=== PATIENT | female | born 1990 | race Caucasian/White ===

== ENCOUNTER 2023-03-05 14:44 | Emergency (ER) | payer MEDICAID ==
[~2023-03-05] VITALS: Ht 167.6 cm; Wt 119.8 kg
[2023-03-05] MEDS ORDERED: amoxicillin 250mg capsule PO ONE (17:10)
[2023-03-05] MEDS ORDERED: ALBU8HFA PO (17:13)
[2023-03-05] MEDS ORDERED: AMOX500C2 PO (17:13)
[2023-03-05 17:41] VITALS: BP 138/80; PULSE 82; TEMP 97.9; O2SAT 99
[2023-03-05 17:45] VITALS: RESP 18
== END 2023-03-05 17:47 | disposition home or self-care (01) ==
LOC: ER 14:45
DX: O99.513 Diseases of the respiratory system complicating pregnancy, third trimester (principal); Z20.822 Contact with and (suspected) exposure to COVID-19; J45.909 Unspecified asthma, uncomplicated; Z3A.35 35 weeks gestation of pregnancy; Z79.899 Other long term (current) drug therapy; Z79.2 Long term (current) use of antibiotics
CPT/HCPCS: 36415; 76805; 87502; 87503; 87811; 99284

== ENCOUNTER 2023-11-06 14:08 | Emergency (ER) | payer MEDICAID ==
[~2023-11-06] VITALS: Ht 167.6 cm; Wt 111.5 kg
[2023-11-06 14:26] VITALS: TEMP 98.2
[2023-11-06 14:59] LABS: BASOPHILS % (AUTO) 0.6 % (0-1); EOSINOPHILS % (AUTO) 0.6 % (0-6); HEMATOCRIT 40.2 % (35.0-45.0); HEMOGLOBIN 13.3 g/dl (12.0-16.0); LYMPHOCYTES # (AUTO) 1.6 X10'3 (1.1-4.8); LYMPHOCYTES % (AUTO) 21.1 % (21-51); MEAN CORPUSCULAR HEMOGLOBIN 29.4 PG (27.0-31.0); MEAN CORPUSCULAR HGB CONC 33.1 g/dL (33.0-36.5); MEAN CORPUSCULAR VOLUME 88.9 FL (78-98); MEAN PLATELET VOLUME 7.3 FL (7.4-10.4); MONOCYTES # (AUTO) 0.3 X10'3 (0-0.9); NEUTROPHILS # (AUTO) 5.5 X10'3 (1.8-7.7); NEUTROPHILS % (AUTO) 73.7 % (42-75); PLATELET COUNT 317 X10'3 (140-440); RED BLOOD COUNT 4.53 X10'6 (4.20-5.60); RED CELL DISTRIBUTION WIDTH 13.8 % (11.5-14.5); WHITE BLOOD COUNT 7.4 X10'3 (4.5-11.0)
[2023-11-06 15:08] LABS: ANION GAP 11 (8-16); BLOOD UREA NITROGEN 17 MG/DL (7-18); BUN/CREATININE RATIO 21.3 (10.0-20.0); CALCIUM 9.5 MG/DL (8.5-10.1); CHLORIDE 104 MMOL/L (99-107); GLUCOSE 118 MG/DL (70-104); POTASSIUM 4.4 MMOL/L (3.5-5.1); SODIUM 142 MMOL/L (135-145); TOTAL CARBON DIOXIDE 26.9 MMOL/L (24-32); eCRCL 95 ML/MIN; eGFR 83 ML/MIN
[2023-11-06] MEDS: metoclopramide 5 mg/ml inj IV ONE (16:42)
[2023-11-06] MEDS: diphenhydrAMINE 50 mg/ml inj IV ONE (16:42)
[2023-11-06 17:27] LABS: HCG SERUM QL NEGATIVE
[2023-11-06] MEDS ORDERED: SCOP1PAT11 TOP (18:31)
[2023-11-06 18:39] VITALS: BP 118/74; PULSE 82; RESP 17; O2SAT 99
== END 2023-11-06 18:40 | disposition home or self-care (01) ==
LOC: ER 14:09
DX: R42 Dizziness and giddiness (principal); H57.12 Ocular pain, left eye
CPT/HCPCS: 36415; 70450; 80048; 84703; 85025; 93005; 96374; 96375; 99285; J1200; J2765

== ENCOUNTER 2024-08-05 14:00 | Emergency (ER) | payer MEDICAID ==
[~2024-08-05] VITALS: Ht 167.6 cm; Wt 114.2 kg
[~2024-08-05 14:00] MED LIST: SCOP1PAT11 TOP
--- NOTE | 2024-08-05 16:31 | Physician Documentation ---
History of Present Illness General Chief Complaint: Headache Stated Complaint: HEAD PAIN Time Seen by MD: 16:14 Primary Medical Doctor: NONE History of Present Illness Initial Comments 34-year-old female presents to the emergency department with complaint of vertigo and headache. She is quite frustrated because she feels that no one has been listening to her complaints pathology for the last six months. Seen once in the emergency department here beginning of the year then again and again at [facility] couple of weeks ago. Has had no formal advanced imaging of the brain. 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 Feels pressure pain to her head that is pulsating throughout the day. Presents quite anxious and upset. Medication Reconciliation Allergies: Coded Allergies: No Known Allergies (Unverified , 03/05/23) Scheduled Scopolamine Hydrobromide (Transderm-Scop), 1 PATCH TOP Q72H Past Medical History Past Medical History: No Pertinent History Past Surgical History: noncontributory Lives with: Family Lives In: Home Physical Exam Physical Exam Vital Signs: Temperature: 97.7, Source: Temporal, Heart Rate: 97, Respiratory Rate: 18, BP: 154/92, Pulse Oximetry: 98, Weight: 114.200 Oxygen Flow Rate: 0 Progress Results/Orders Results/Orders Orders - ALEJANDRA ATWOOD PAC Ct Head (08/05/24 16:45) Completed Orders - ALEJANDRA ATWOOD PAC Cbc/Diff (08/05/24 16:14) CMP (08/05/24 16:14) Ct Head (08/05/24 16:45) Normal Saline 1000ml (Sodium Chloride 10 (08/05/24 16:15) Metoclopramide Inj (Reglan Inj) (08/05/24 16:15) Diphenhydramine Inj (Benadryl Inj.) (08/05/24 16:15) Methylprednisolone Sod Succ (Solumedrol (08/05/24 16:15) Medications Received in ER Medications (Trade) Dose Ordered Sig/Zach Route PRN Reason Start Time Stop Time Status Last Admin Dose Admin Sodium Chloride 1,000 ml @ 1,000 mls/hr ONCE ONCE IV 08/05/24 16:15 08/05/24 17:14 DC 08/05/24 17:12 1,000 MLS/HR (Reglan inj) 10 mg ONCE ONCE IV 08/05/24 16:15 08/05/24 16:17 DC 08/05/24 17:12 10 MG (Benadryl inj.) 50 mg ONCE ONCE IV 08/05/24 16:15 08/05/24 16:17 DC 08/05/24 17:11 50 MG (SoluMEDROL 125mg inj) 125 mg ONCE ONCE IV 08/05/24 16:15 08/05/24 16:17 DC 08/05/24 17:11 125 MG Vital Signs 08/05/24 08/05/24 14:04 17:21 Temp 97.7 97.7 Pulse 97 87 Resp 18 15 B/P (MAP) 154/92 1/ Pulse Ox 98 100 O2 Flow Rate 0 0 Laboratory Tests Test 08/05/24 16:31 White Blood Count 7.5 Red Blood Count 4.43 Hemoglobin 12.8 Hematocrit 38.1 Mean Corpuscular Volume 85.9 Mean Corpuscular Hemoglobin 28.9 Mean Corpuscular Hemoglobin Concent 33.7 Red Cell Distribution Width 14.2 Platelet Count 345 Mean Platelet Volume 7.1 L Neutrophils (%) (Auto) 63.1 Lymphocytes (%) (Auto) 29.4 Monocytes (%) (Auto) 5.5 Eosinophils (%) (Auto) 1.3 Basophils (%) (Auto) 0.7 Neutrophils # (Auto) 4.7 Lymphocytes # (Auto) 2.2 Monocytes # (Auto) 0.4 Eosinophils # (Auto) 0.1 Basophils # (Auto) 0.1 CBC Comment Sodium Level 139 Potassium Level 4.7 Chloride Level 102 Carbon Dioxide Level 28.9 Anion Gap 8 Blood Urea Nitrogen 10 Creatinine 0.82 Estimated GFR/1.73 m2 80 BUN/Creatinine Ratio 12.2 Glucose Level 98 Calcium Level 8.8 Total Bilirubin 0.3 Aspartate Amino Transf (AST/SGOT) 18 Alanine Aminotransferase (ALT/SGPT) 41 Alkaline Phosphatase 86 Total Protein 7.4 Albumin 3.8 Globulin 3.6 Albumin/Globulin Ratio 1.1 Chemistry Comments Medical Decision Making Differential Diagnosis 34-year-old female with a diagnosis of vertigo continues to have breakthrough headaches despite occasional episodes maneuver. We will go ahead and obtain CT imaging to evaluate for sensorial vertigo. Patient to receive screening labs, IV hydration reassessment. Departure Disposition: HOME / SELF CARE / HOMELESS Impression: Primary Impression: Vertigo Additional Impression: Headache Qualified Codes: R51.9 - Headache, unspecified; G89.29 - Other chronic pain Condition: Improved Discharge Instructions: Vertigo Additional Instructions: Today in the emergency department you had labs obtain a CT imaging. You received medication for headache mitigation and Solu-Medrol for vertigo. Your labs are reassuring your CT imaging is reassuring. Make a follow up appointment with the primary care physician for additional workup as needed. Thank you for visiting the emergency department [facility]. Referrals: NO PRIMARY CARE PROVIDER (PCP) Prescriptions Meclizine Hcl (MECLIZINE HCL) 12.5 Mg Tablet 1 TAB PO Q8H for dizziness for 10 Days, #30 TAB 0 Refills Prov: AELJANDRA ATWOOD PAC 08/05/24 Education Educated: Patient Educated regarding: diagnosis, treatment Signature Scribe Signature: . Attestation: . LAEJANDRA ATWOOD PAC Aug 05, 2024 16:31
[2024-08-05 16:49] LABS: BASOPHILS # (AUTO) 0.1 X10'3 (0-0.2); EOSINOPHILS # (AUTO) 0.1 X10'3 (0-0.9); LYMPHOCYTES # (AUTO) 2.2 X10'3 (1.1-4.8); MEAN CORPUSCULAR VOLUME 85.9 FL (78-98); MONOCYTES # (AUTO) 0.4 X10'3 (0-0.9); RED CELL DISTRIBUTION WIDTH 14.2 % (11.5-14.5); WHITE BLOOD COUNT 7.5 X10'3 (4.5-11.0)
[2024-08-05 16:51] LABS: BASOPHILS % (AUTO) 0.7 % (0-1); EOSINOPHILS % (AUTO) 1.3 % (0-6); HEMATOCRIT 38.1 % (35.0-45.0); HEMOGLOBIN 12.8 g/dl (12.0-16.0); LYMPHOCYTES % (AUTO) 29.4 % (21-51); MEAN CORPUSCULAR HEMOGLOBIN 28.9 PG (27.0-31.0); MEAN CORPUSCULAR HGB CONC 33.7 g/dL (33.0-36.5); MEAN PLATELET VOLUME 7.1 FL (7.4-10.4); MONOCYTES % (AUTO) 5.5 % (2-12); NEUTROPHILS # (AUTO) 4.7 X10'3 (1.8-7.7); NEUTROPHILS % (AUTO) 63.1 % (42-75); PLATELET COUNT 345 X10'3 (140-440); RED BLOOD COUNT 4.43 X10'6 (4.20-5.60)
--- NOTE | 2024-08-05 17:10 | RADIOLOGY REPORT ---
CLINICAL HISTORY: Vertigo TECHNIQUE: Helical imaging carried out from skull base to vertex without intravenous contrast. This e xam was performed according to our departmental dose optimization program. Up-to-date CT equipment an d radiation dose reduction techniques are utilized as appropriate. CTDIVol: 0.14+ 64.63 mGy DLP: 1186.59 mGy-cm WID: COMPARISON: CT CT HEAD on DOS: 11/06/23 FINDINGS: The ventricles and subarachnoid spaces are normal in size and configuration. There is no midline bridget ft or mass effect. The pradhan white matter interfaces are maintained. The basal cisterns are patent. Th ere is no evidence of acute intracranial hemorrhage or extra-axial fluid collection. The mastoid air cells and visualized paranasal sinuses are well-aerated. IMPRESSION: No acute intracranial abnormality.
[2024-08-05] MEDS: diphenhydrAMINE 50 mg/ml inj IV ONE (17:11)
[2024-08-05] MEDS: methylPREDNISolone sod succ 125mg/2ml vial IV ONE (17:11)
[2024-08-05] MEDS: metoclopramide 5 mg/ml inj IV ONE (17:12)
[2024-08-05] MEDS: normal saline 1000ml 1,000 ML IV ONE (17:12)
[2024-08-05 17:23] LABS: ALANINE AMINOTRANSFERASE 41 U/L (12-78); ALBUMIN 3.8 G/DL (3.4-5.0); ALBUMIN/GLOBULIN RATIO 1.1 (1.1-1.5); ALKALINE PHOSPHATASE 86 IU/L (46-116); ANION GAP 8 (8-16); ASPARTATE AMINO TRANSFERASE 18 U/L (10-37); BILIRUBIN,TOTAL 0.3 MG/DL (0.1-1.0); BLOOD UREA NITROGEN 10 MG/DL (7-18); BUN/CREATININE RATIO 12.2 (10.0-20.0); CALCIUM 8.8 MG/DL (8.5-10.1); CHLORIDE 102 MMOL/L (99-107); CREATININE 0.82 MG/DL (0.40-0.90); GLUCOSE 98 MG/DL (70-104); POTASSIUM 4.7 MMOL/L (3.5-5.1); SODIUM 139 MMOL/L (135-145); TOTAL CARBON DIOXIDE 28.9 MMOL/L (24-32); TOTAL PROTEIN 7.4 G/DL (6.4-8.2); eCRCL 91 ML/MIN; eGFR 80 ML/MIN
[2024-08-05] MEDS ORDERED: MECL-231 PO (18:04)
[2024-08-05 18:34] VITALS: BP 125/91; PULSE 76; RESP 16; TEMP 97.7; O2SAT 100
== END 2024-08-05 18:33 | disposition home or self-care (01) ==
LOC: ER 14:01
DX: Z79.899 Other long term (current) drug therapy (principal); R42 Dizziness and giddiness; R51.9 Headache, unspecified
CPT/HCPCS: 36415; 70450; 80053; 85025; 96361; 96374; 96375; 99285; J1200; J2765; J2919; J7030